=== PATIENT | male | born 1985 | race Hispanic/Latino ===

== ENCOUNTER 2022-04-06 10:28 | Emergency (ER) | payer SELFPAY ==
[2022-04-06] MEDS ORDERED: CEPHALEXIN500 M1 PO ×2 (11:02→11:04)
[2022-04-06] MEDS ORDERED: BACTRIM DS1 TAB PO ×2 (11:02→11:04)
[2022-04-06] MEDS ORDERED: TRAMADOL HYDROC50 M1 PO (11:25)
[2022-04-06 11:30] VITALS: BP 120/70
== END 2022-04-06 11:39 | disposition home or self-care (01) | DRG 603 ==
LOC: ED 10:28
PROC: 0H9HXZZ Drainage of Right Upper Leg Skin, External Approach (ICD-10-PCS; principal; 2022-04-06)
DX: L02.415 Cutaneous abscess of right lower limb (principal)

== ENCOUNTER 2022-04-07 10:16 | Emergency (ER) | payer SELFPAY ==
[~2022-04-07] VITALS: Ht 170.2 cm; Wt 83.0 kg
[~2022-04-07 10:16] MED LIST: BACTRIM DS1 TAB PO; CEPHALEXIN500 M1 PO; TRAMADOL HYDROC50 M1 PO
[2022-04-07 10:24] VITALS: BP 125/82
[2022-04-07 10:30] VITALS: BP 113/77
== END 2022-04-07 10:39 | disposition home or self-care (01) | DRG 951 ==
LOC: ED 10:16
DX: Z48.01 Encounter for change or removal of surgical wound dressing (principal)